=== PATIENT | female | born 1995 | race Caucasian/White ===

== ENCOUNTER 2016-09-27 18:27 | Emergency (ER) | payer OTHER ==
[~2016-09-27] VITALS: Ht 165.1 cm; Wt 72.7 kg
[2016-09-27 18:44] VITALS: Ht 165.1 cm; Wt 72.7 kg
[2016-09-27] MEDS ORDERED: SODIUM CHLORIDE 0.9% 1000ML 1,000 ML IV STA ×2 (19:00→22:36)
[2016-09-27] MEDS ORDERED: DiphenhydrAMINE HCL 50 MG/ML VIAL IV STA (19:00)
[2016-09-27] MEDS ORDERED: KETOROLAC TROMETHAMINE 30 MG/ML VIAL IV STA (19:00)
[2016-09-27] MEDS ORDERED: PROCHLORPERAZINE 5 MG/ML 2 ML VIAL IV STA (19:00)
--- NOTE | 2016-09-27 19:13 | EMERGENCY ROOM VISIT NOTE ---
History Report prepared by Yazmin: Ed Avery Under the Supervision of: Dr. Jeet Gonzalez M.D. First contact with patient: 18:48 Chief Complaint: FEVER Stated Complaint: SUSPECTED MALARIA,HIGH FEVER,HEART RATE,CHILLS,SWE History of Present Illness The patient is a 20 year old female who presents to the Emergency Room with complaints of persistent chills for the past 3 days. The patient complains of worsening chills, shivering, and feeling hot and sweaty. The patient has had multiple episodes of these chills and then feeling hot and sweaty. The episodes have gotten more severe each day since they started. She also complains of a sharp headache that started yesterday. She has been taking Advil for the headache with minimal relief of her symptoms. 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 She also states that she had 30-40 mosquito bites by the time she returned to the [facility]. The patient also complains of nausea and a decreased appetite today as well as some throat discomfort and abdominal discomfort. The patient denies the possibility of forgetting to remove a tampon and states that her last normal menstrual period started on September 02 and denies any chance of . She also denies vomiting, neck pain, or pain with head movement. Source of History: patient Onset: the past 3 days Position: other (global) Timing: other (persistent) Associated Symptoms: + abdominal pain, + chills, + headache, + nausea, No neck pain, No vomiting Note: Other associated symptoms: shivering, feeling hot/ sweaty, decreased appetite Denies: pain with head movement Review of Systems See HPI for pertinent positives & negatives. A total of 10 systems reviewed and were otherwise negative. Past Medical & Surgical Medical Problems: (1) No Known Active Medical Problems Family History FH: cancer FH: hypertension Heart disease Social History Smoking Status: Never Smoker Housing Status: lives with roommate Occupation Status: student, [employer] student Current/Historical Medications No Active Prescriptions or Reported Meds Allergies Coded Allergies: No Known Allergies (Unverified , 09/27/16) Physical Exam Vital Signs Date Time Temp Pulse Resp B/P Pulse Ox O2 Delivery O2 Flow Rate FiO2 09/28/16 00:50 37.2 113 20 99/60 95 09/27/16 23:53 37.2 116 21 110/75 96 Room Air 09/27/16 22:49 38.2 129 23 103/67 95 Room Air 09/27/16 21:49 38.1 09/27/16 21:36 119 18 110/60 98 Room Air 09/27/16 20:21 118 20 132/87 100 Room Air 09/27/16 20:12 120 09/27/16 19:19 96 Room Air 09/27/16 18:44 37.9 140 18 119/77 99 Room Air Physical Exam GENERAL: Patient is a healthy-appearing well-nourished HEAD: Normocephalic atraumatic EYES: Ocular movements intact pupils equal and react to light OROPHARYNX mucous membranes are moist no exudates present no erythema or edema present NECK: Supple no nuchal rigidity CHEST: Good equal expansion LUNGS: Clear and equal to auscultation CARDIAC: Normal S1 and S2 ABDOMEN: Soft nontender no guarding BACK: No CVA tenderness EXTREMITIES: No pain upon palpation normal muscle strength in all groups no clubbing cyanosis or edema NEURO: Patient is following commands is answering questions appropriately. Alert and oriented x3 Cranial Nerves 2-12 grossly intact . No evidence of meningitis or encephalitis on exam. Medical Decision & Procedures ER Provider Diagnostic Interpretation: X-ray results as stated below per interpretation by me and the radiologist: CHEST ONE VIEW PORTABLE CLINICAL HISTORY: Fever. Chills. COMPARISON STUDY: No previous studies for comparison. FINDINGS: Lung volumes are normal. Lungs are clear. There is no pneumothorax or pleural effusion. Pulmonary vascularity is normal. Cardiomediastinal silhouette is normal. IMPRESSION: No acute cardiopulmonary findings. Electronically signed by: Solomon Benites M.D. 09/27/2016 7:19 PM Dictated Date/Time: 09/27/2016 7:19 PM Laboratory Results 09/27/16 20:00 Red Blood Count 4.54, Mean Corpuscular Volume 93.0, Mean Corpuscular Hemoglobin 31.5, Mean Corpuscular Hemoglobin Concent 33.9, Mean Platelet Volume 10.7, Neutrophils (%) (Auto) 90.3, Lymphocytes (%) (Auto) 6.1, Monocytes (%) (Auto) 3.6, Eosinophils (%) (Auto) 0.0, Basophils (%) (Auto) 0.0, Neutrophils # (Auto) 3.71, Lymphocytes # (Auto) 0.25, Monocytes # (Auto) 0.15, Eosinophils # (Auto) 0.00, Basophils # (Auto) 0.00 09/27/16 20:00 Test 09/27/16 19:15 09/27/16 19:25 09/27/16 20:00 Influenza Type A (RT-PCR) Neg for Influ A (NEG) Influenza Type A Antigen Neg for Influ A (NEG) Influenza Type B Antigen Neg for Influ B (NEG) Influenza Type B (RT-PCR) Neg for Influ B (NEG) Urine Color ORANGE Urine Appearance CLEAR (CLEAR) Urine pH 6.0 (4.5-7.5) Urine Specific Billingsley 1.026 (1.000-1.030) Urine Protein 1+ (NEG) Urine Glucose (UA) NEG (NEG) Urine Ketones 3+ (NEG) Urine Occult Blood 1+ (NEG) Urine Nitrite NEG (NEG) Urine Bilirubin NEG (NEG) Urine Urobilinogen NEG (NEG) Urine Leukocyte Esterase TRACE (NEG) Urine WBC (Auto) 1-5 /hpf (0-5) Urine RBC (Auto) 5-10 /hpf (0-4) Urine Hyaline Casts (Auto) 5-10 /lpf (0-5) Urine Epithelial Cells (Auto) >30 /lpf (0-5) Urine Bacteria (Auto) NEG (NEG) Urine Renal Epithelial Cells /lpf (0-5) Urine Test NEG (NEG) White Blood Count 4.11 K/uL (4.8-10.8) Red Blood Count 4.54 M/uL (4.2-5.4) Hemoglobin 14.3 g/dL (12.0-16.0) Hematocrit 42.2 % (37-47) Mean Corpuscular Volume 93.0 fL (80-100) Mean Corpuscular Hemoglobin 31.5 pg (25-34) Mean Corpuscular Hemoglobin Concent 33.9 g/dl (32-36) Platelet Count 41 K/uL (130-400) Mean Platelet Volume 10.7 fL (7.4-10.4) Neutrophils (%) (Auto) 90.3 % Lymphocytes (%) (Auto) 6.1 % Monocytes (%) (Auto) 3.6 % Eosinophils (%) (Auto) 0.0 % Basophils (%) (Auto) 0.0 % Neutrophils # (Auto) 3.71 K/uL (1.4-6.5) Lymphocytes # (Auto) 0.25 K/uL (1.2-3.4) Monocytes # (Auto) 0.15 K/uL (0.11-0.59) Eosinophils # (Auto) 0.00 K/uL (0-0.5) Basophils # (Auto) 0.00 K/uL (0-0.2) RDW Standard Deviation 44.5 fL (36.4-46.3) RDW Coefficient of Variation 13.1 % (11.5-14.5) Immature Granulocyte % (Auto) 0.0 % Immature Granulocyte # (Auto) 0.00 K/uL (0.00-0.02) Platelet Estimate DECREASED Red Blood Cell Morphology Unremarkable Peripheral Blood Smear Path Consult Anion Gap 8.0 mmol/L (3-11) Est Creatinine Clear Calc Drug Dose 112.1 ml/min Estimated GFR () 123.0 Estimated GFR (Non- 106.1 BUN/Creatinine Ratio 10.6 (10-20) Calcium Level 8.7 mg/dl (8.5-10.1) Total Bilirubin 1.7 mg/dl (0.2-1) Direct Bilirubin 0.6 mg/dl (0-0.2) Aspartate Amino Transf (AST/SGOT) 79 U/L (15-37) Alanine Aminotransferase (ALT/SGPT) 47 U/L (12-78) Alkaline Phosphatase 104 U/L (45-117) Total Protein 7.5 gm/dl (6.4-8.2) Albumin 4.2 gm/dl (3.4-5.0) Monoscreen NEG (NEG) Labs reviewed by ED physician. Medications Administered Medications (Trade) Dose Ordered Sig/Judy Route Start Time Stop Time Status Last Admin Dose Admin Sodium Chloride (Nss 1000ml) 1,000 ml @ 999 mls/hr Q1H1M STAT IV 09/27/16 19:00 09/27/16 20:00 DC 09/27/16 19:00 999 MLS/HR Ketorolac Tromethamine (Toradol Inj) 30 mg NOW STAT IV 09/27/16 19:00 09/27/16 19:05 DC 09/27/16 20:16 30 MG Prochlorperazine Edisylate (Compazine Inj) 5 mg NOW STAT IV 09/27/16 19:00 09/27/16 19:05 DC 09/27/16 20:15 5 MG Diphenhydramine HCl (Benadryl Inj) 50 mg NOW STAT IV 09/27/16 19:00 09/27/16 19:05 DC 09/27/16 20:12 50 MG Acetaminophen 1000 mg 1,000 mg NOW STAT PO 09/27/16 21:49 09/27/16 21:50 DC 09/27/16 21:53 1,000 MG Sodium Chloride 1,000 ml @ 999 mls/hr Q1H1M STAT IV 09/27/16 22:36 09/27/16 23:36 DC 09/27/16 22:36 999 MLS/HR Clindamycin Phosphate/Dextrose (Cleocin Iv/ Dextrose Add-[place] 100ML) 106 ml @ 100 mls/hr ONE STAT IV 09/27/16 23:43 09/28/16 00:46 DC 09/28/16 00:00 100 MLS/HR ED Course 1846: Past medical records reviewed. The patient was evaluated in room B8. A complete history and physical examination was performed. 1853: At this time, I offered to contact and discuss the patient's case with her parents. The patient denied and stated her roommate would call them. 1899: Ordered Benadryl Inj 50 mg IV, Compazine Inj 5 mg IV, Toradol Inj 30 mg IV , NSS 1000 ml @ 999 mls/hr IV. 1910: At this time, I discussed the patient's case with the [facility]. They were going to page the malaria expert and call back. 1936: At this time, I discussed the patient's case with Dr. Holloway - Emergency Malaria Doctor from the [facility] who recommended a thin and thick smear in 12 hours for a total of 3 smears. She stated if we cannot get a pathologist to come in to the [facility], the patient would need to be transferred to a hospital where she could see a pathologist [facility]. 1950: At this time, I discussed the patient's case with the Dr. Flores - Pathologist On-Call - [facility] and he agreed with the treatment plan. 2111: At this time, I discussed the patient's case with Dr. Vautour - Pathology [facility] and he said that the smear is greater than 5% parasites. 2124: At this time, I discussed the patient's case with Dr. Holloway - Emergency Malaria Physician from the [facility]. They said since the parasite level was greater than 5%, the patient needs to be treated with IV Quinidine and we do not have the medication the patient has to be transported to a hospital that has it. 2130: At this time, I talked to Dr. Ohara - Infectious Disease [facility] and she recommended we contact [facility] because [facility] does not carry IV Quinidine either. 2149: Ordered Tylenol Tab 1000 mg PO. 2215: At this time, I discussed the patient's case with Dr. Arnol Toledo Infectious Disease [facility] and she is in contact with and discussing the patient's case with a malaria expert at [facility]. 2225: At this time, I updated the patient's parents at bedside. 2235: At this time, I discussed the patient's case with Dr. Holloway - Emergency Malaria [facility] and [facility]. 2236: Ordered NSS 1000 ml @ 999 mls/hr IV. 2241: [facility] who [facility] needed for treatment. 2243: At this time, I discussed the patient's case with Jayla Fong, a global brigades AOC from [facility]. I updated him that this patient had just returned from a medical brigade with the [employer] in [facility]. This is the second patient on the trip that was given a malaria diagnosis. The patient stated that only some of the members of the club took Malaria pills while in [place]. 2254: At this time, I discussed the patient's case with the pharmacy. We do not have Malarone or Coartem. 2257: At this time, I reevaluated the patient who was resting. I updated her and her family. 2301: At this time, I discussed the patient's case with Dr. Arnol Toledo Infectious Diseases [facility] who has accepted the patient for transfer for further evaluation at [facility]. 2343: At this time, I discussed the patient's case with Dr. Arnol Toledo Infectious [facility] and we discussed the patient's transfer options to [place]. 2343: Ordered Clindamycin Phosphate 900 mg/ Dextrose 106 ml @ 100 mls/hr IV. Medical Decision Differential diagnosis: Etiologies such as metabolic, infection, hypo/hyperglycemia, electrolyte abnormalities, cardiac sources, intracerebral event, toxicologic, neurologic, as well as others were entertained. Medication Reconciliation: I attest that I have personally reviewed the patient' s current medication list Blood Pressure Screening: Patient was found to have normal blood pressure on screening and does not require follow up. This is a 20-year-old female who presents emergency department complaining of waxing and waning fevers for the past 4 days. The patient recently returned from [facility]. She did not take malarial prophylaxis before the trip. Based on her clinical presentation a peripheral smear was obtained. I discussed the case with the past fall a just as well as the [employer] who asked for a peripheral smear is well. The pathologist on-call is concern for also form malaria with a very high parasite count greater than 5%. I again discussed the case with the [employer] who strongly recommended IV quinidine. This medication that we do not have, as the patient is from [place] I recommended to the patient that she be transferred to [facility]. She was in agreement with this. For this reason I did discuss the case with the on-call infectious disease doctor at [facility] who also highly recommended transfer. However Dr. Ohara became concerned that she did not have the IV medication and then recommended transfer to the [facility]. For this reason the case was again discussed with infectious disease at [facility] as well as the [facility] [employer] again in regards to obtaining a different medication, however they recommended calling local VAs. For this reason the [facility] was contacted and they as well do not have the medication. The [facility] Contacted their malarial specialist who again strongly recommended flying the patient down for alternative therapies. I discussed all these findings with the parents who agreed to the transfer. [facility] was contacted for flight however they were unable to make the trip, and for this reason [facility] was contacted. In the meanwhile the [facility] recommended IV clindamycin be started on the patient. The patient was originally hypotensive and febrile along with tachycardic upon arrival to the emergency department. She is given normal saline bolus along with Toradol. She was given a second normal saline bolus. The [employer] informed this physician that this is the second [facility] malarial case this week and they all appear to be centered around the same group of students that went to [facility]. because of this the [employer]ix system administrator director motion picture for [facility] was contacted. I strongly recommended to the [place] that they Tully the rest of the group of students and have them tested. I also informed case management who sent as well as infectious disease. Consults Time Called: 1931 Consulting Physician: Dr. Holloway - Emergency Malaria Doctor from [facility] Returned Call: 1936 At this time, I discussed the patient's case with Dr. Holloway - Emergency Malaria Doctor from the [facility] who recommended a thin and thick smear in 12 hours for a total of 3 smears. She stated if we cannot get a pathologist to come in to the hospital [facility], the patient would need to be transferred to a hospital where she could see a pathologist [facility]. Additional Consults: Time Called: 1944 Consulted Physician: Dr. Flores - Pathologist On-Call - [facility] Returned Call: 1950 Additional Comments: At this time, I discussed the patient's case with Dr. Flores - Pathologist On- Call and he agreed with the treatment plan. Time Called: 2106 Consulted Physician: Dr. West - Pathology [facility] Returned Call: 2111 Additional Comments: At this time, I discussed the patient's case with Dr. West and he said that the smear is greater than 5% parasites. Impression Primary Impression: Falciparum malaria Critical Care I have personally spent greater than 4 hours of critical care time in the direct management of this patient. This includes bedside care, interpretation of diagnostic studies, and testing, discussion with consultants, patient, and family members, and other required patient management activities. This 4 hours is in excess of all separately billable procedures. Scribe Attestation The scribe's documentation has been prepared under my direction and personally reviewed by me in its entirety. I confirm that the note above accurately reflects all work, treatment, procedures, and medical decision making performed by me. Departure Information Dispostion Transfer Acute Care Facility ([facility]) Prescriptions No Active Prescriptions or Reported Meds
[2016-09-27 19:19] VITALS: O2SAT 96
--- NOTE | 2016-09-27 19:21 | DIAGNOSTIC IMAGING REPORT ---
CHEST ONE VIEW PORTABLE CLINICAL HISTORY: Fever. Chills. COMPARISON STUDY: No previous studies for comparison. FINDINGS: Lung volumes are normal. Lungs are clear. There is no pneumothorax or pleural effusion. Pulmonary vascularity is normal. Cardiomediastinal silhouette is normal. IMPRESSION: No acute cardiopulmonary findings. Electronically signed by: Solomon Benites M.D. 09/27/2016 7:19 PM Dictated Date/Time: 09/27/2016 7:19 PM
[2016-09-27 19:43] LABS: URINE APPEARANCE CLEAR (CLEAR); URINE COLOR ORANGE; URINE EPITHELIAL CELL AUTO >30 /lpf (0-5); URINE NITRITE NEG (NEG); URINE SPECIFIC GRAVITY 1.026 (1.000-1.030); UROBILINOGEN NEG (NEG)
[2016-09-27 19:47] LABS: MANUAL MICROSCOPIC REQUIRED? NO; REVIEW REQ? YES
[2016-09-27 19:49] LABS: URINE BILIRUBIN NEG (NEG)
[2016-09-27 20:47] LABS: BUN/CREATININE RATIO 10.6 (10-20); CALCIUM 8.7 mg/dl (8.5-10.1); CREATININE 0.8 mg/dl (0.60-1.20); POTASSIUM 3.8 mmol/L (3.5-5.1)
[2016-09-27 21:21] LABS: HEMATOCRIT 42.2 % (37-47); MEAN CORPUSCULAR HEMOGLOBIN 31.5 pg (25-34); MEAN CORPUSCULAR HGB CONC 33.9 g/dl (32-36); MEAN PLATELET VOLUME 10.7 fL (7.4-10.4); PLATELET COUNT 41 K/uL (130-400); RED BLOOD COUNT 4.54 M/uL (4.2-5.4); WHITE BLOOD COUNT 4.11 K/uL (4.8-10.8)
[2016-09-27 21:23] LABS: INFLUENZA A PCR Neg for Influ A (NEG); INFLUENZA B PCR Neg for Influ B (NEG)
[2016-09-27 21:23] LABS: COMPLETE YES; LYMPH % 6.1 %; LYMPH ABS # 0.25 K/uL (1.2-3.4); MONO % 3.6 %; NEUT % 90.3 %; PLT ESTIMATE DECREASED
[2016-09-27] MEDS ORDERED: ACETAMINOPHEN 500 MG TAB PO STA (21:49)
[2016-09-27] MEDS ORDERED: CLINDAMYCIN IV 900 MG in DEXTROSE 5% ADD-VANTAGE 100ML 100 ML IV STA (23:43)
[2016-09-28 00:50] VITALS: BP 99/60; PULSE 113; TEMP 37.2; O2SAT 95
[2016-09-30 16:34] LABS: EBV EARLY ANTIGEN AB <0.91 INDEX
== END 2016-09-28 00:40 | disposition short-term general hospital (02) ==
LOC: C.EDB 18:30
DX: B50.9 Plasmodium falciparum malaria, unspecified (principal); Z82.49 Family history of ischemic heart disease and other diseases of the circulatory system